=== PATIENT | female | born 2000 | race Caucasian/White ===

== ENCOUNTER 2024-05-25 07:55 | Emergency (ER) | payer BC, MEDICAID ==
[~2024-05-25] VITALS: Ht 154.9 cm; Wt 65.8 kg
[2024-05-25] MEDS ORDERED: PHEN-704 PO (08:11)
[2024-05-25] MEDS ORDERED: NITR100C6 PO (08:11)
[2024-05-25 08:38] LABS: *BILIRUBIN,URIN NEGATIVE (NEGATIVE); *BLOOD, URINE NEGATIVE (NEGATIVE); *CLARITY,URINE CLEAR (CLEAR); *COLOR,URINE AMBER (YELLOW); *KETONES,URINE 1+ (NEGATIVE); *PROTEIN,URINE TRACE (NEGATIVE); LEUKOCYTE ESTERASE ,URINE NEGATIVE (NEGATIVE); NITRITE, URINE POSITIVE (NEGATIVE); PH,URINE 5.5 (5.0-8.0); UGLUCOSE TRACE (NEGATIVE)
[2024-05-25 08:40] LABS: *URINE HCG, QUAL NEGATIVE (NEGATIVE)
[2024-05-25 08:44] LABS: BACTERIA,URINE MODERATE /HPF (NONE SEEN); SQUAMOUS EPITHELIAL CELL,UR MANY /HPF (NONE SEEN); WBC,URINE 0-3 /HPF (0-3)
[2024-05-25] MEDS ORDERED: DOXY100C5 PO (10:05)
[2024-05-25] MEDS ORDERED: LIDOCAINE HCL 1% 20 ML VIAL ONE (10:07)
[2024-05-25] MEDS ORDERED: CEFTRIAXONE 500 MG VIAL ONE (10:07)
[2024-05-25 10:16] VITALS: BP 118/75; O2SAT 99
[2024-05-25] MEDS: CEFTRIAXONE 500 MG VIAL IM ONE (10:16)
[2024-05-27 13:07] LABS: *CHLAMYDIA NAA Negative (Negative); *GC NAA Negative (Negative); *TRIC.VAG. NAA Negative (Negative)
== END 2024-05-25 10:18 | disposition home or self-care (01) ==
LOC: ER 08:05
DX: N71.9 Inflammatory disease of uterus, unspecified (principal); R10.2 Pelvic and perineal pain; R11.2 Nausea with vomiting, unspecified; Z87.440 Personal history of urinary (tract) infections; Z88.7 Allergy status to serum and vaccine
CPT/HCPCS: 99285; 76856; 81001; 84703; 87086; 96372; 87491; J0696; J3490; A4606; A4663